=== PATIENT | male | born 1945 | race Caucasian/White ===

== ENCOUNTER 2020-01-16 20:07 | Emergency (ER) | payer OTHER ==
[~2020-01-16] VITALS: Ht 193 cm; Wt 79.4 kg
--- NOTE | 2020-01-16 20:10 | NUR ---
PT AAOX4. BIBRA FROM HOME C/O CHEST TIGHTNESS AND WEAKNESS X3 WEEKS. UPON ASSESSMENT PT SAT 93% ROOM AIR. HX OF COPD. NASAL CANNULA WAS TAKEN OFF. PER RA PT USUALLY ON 2L NC. R HAND 18G PLACED BY RA. PT PLACED ON STOCK PATCH SAWYER AND PULSE OX. NO ACUTE DISTRESS NOTED. AWAITING MD FOR EVAL AND ORDERS.
[2020-01-16 20:42] LABS: ABG BASE EXCESS 3.6 mmol/L; ABG OXYGEN SATURATION 85.3 % (92.0-98.5); ABG PCO2 51.4 mmHg (35.0-45.0); ABG PH 7.379 (7.350-7.450); ABG PO2 50.7 mmHg (75.0-100.0); AaDO2 37.5 mmHg; COHb 2.7 % (0.5-1.5); MetHb 0.1 % (0.0-1.5); O2Hb 82.9 % (94.0-97.0); SITE, ABG Right Radial; VENT MODE, BG ROOM AIR
--- NOTE | 2020-01-16 20:47 | NUR ---
RT AT BEDSIDE FOR ABG.
--- NOTE | 2020-01-16 20:48 | NUR ---
RT SPEAKING TO MD REGARDING ABG. MD STATED TO PLACE PT ON 3L NASAL CANNULA. PT PLACED ON 3L NASAL CANNULA. VSS.
[2020-01-16] MEDS ORDERED: TAMS-12 PO (20:58)
[2020-01-16] MEDS ORDERED: VANCOMYCIN 1 GM in IV D5W 250 ML IV ONE (21:00)
[2020-01-16] MEDS ORDERED: methylPREDNISolone SOD SUCC 125 MG/2ML VIAL IV ONE (21:00)
[2020-01-16] MEDS ORDERED: LEVOFLOXACIN 750 MG /D5W 150ML PIGGYBACK IV ONE (21:00)
--- NOTE | 2020-01-16 21:01 | NUR ---
SYSTEMS SOFTWARE DEVELOPER AT BEDSIDE FOR LABS.
--- NOTE | 2020-01-16 21:01 | NUR ---
COVID SWAB COLLECTED AND GIVEN TO [employer] SPECIALIST
[2020-01-16 21:10] LABS: BASOPHILS % (AUTO) 0.5 % (0.0-2.0); EOSINOPHILS % (AUTO) 8.9 % (0.0-6.0); HEMATOCRIT 34 % (39-51); HEMOGLOBIN 11.5 g/dL (13.5-17.5); LYMPHOCYTES # (AUTO) 0.7 /CMM (0.8-4.8); LYMPHOCYTES % (AUTO) 10.5 % (20.0-44.0); MEAN CORPUSCULAR HGB CONC 33 g/dl (31.0-36.0); MEAN CORPUSCULAR VOLUME 101 fL (80-96); MONOCYTES # (AUTO) 0.7 /CMM (0.1-1.30); NEUTROPHILS % (AUTO) 70.1 % (43.0-81.0); PLATELET COUNT (AUTO) 212 /CMM (150-450); RED BLOOD CELL COUNT(AUTO) 3.39 MIL/uL (4.5-6.0); WHITE BLOOD COUNT (AUTO) 7.1 K/uL (4.3-11.0)
[2020-01-16] MEDS ORDERED: methylPREDNISolone SOD SUCC 125 MG/2ML VIAL ONE (21:11)
[2020-01-16] MEDS ORDERED: LEVOFLOXACIN 750 MG /D5W 150ML 150 ML IV ONE (21:11)
--- NOTE | 2020-01-16 21:23 | NUR ---
SPOKE TO REGARDING PT UNABLE TO PROVIDE URINE SAMPLE. STATED IT IS NOT NEEDED ANYMORE.
[2020-01-16 21:36] LABS: CALCIUM, SERUM 8.6 mg/dL (8.5-10.1); CARBON DIOXIDE 29 mmol/L (21-32); CHLORIDE 95 mmol/L (98-107); CREATININE 0.7 mg/dL (0.6-1.3); GLUCOSE 82 mg/dL (74-106); POTASSIUM 4.3 mmol/L (3.5-5.1); SODIUM SERUM 131 mmol/L (136-145); UREA NITROGEN, BLOOD 11 mg/dL (7-18)
--- NOTE | 2020-01-16 21:45 | NUR ---
LAB CALLED REGARDING NEGATIVE COVID RESULT.
[2020-01-16 21:46] LABS: ALANINE AMINOTRANSFERASE 38 U/L (12-78); ALBUMIN 3.3 g/dL (3.4-5.0); ALKALINE PHOSPHATASE 63 U/L (46-116); ASPARTATE AMINOTRANSFERASE 40 U/L (15-37); BILIRUBIN,DIRECT 0.2 mg/dL (0.0-0.2); BILIRUBIN,TOTAL 0.8 mg/dL (0.2-1.0); TOTAL PROTEIN, SERUM 7.3 g/dL (6.4-8.2)
--- NOTE | 2020-01-16 21:50 | NUR ---
CALLED [facility] [phone] CANDI MUNSON WILL CALL US BACK.
--- NOTE | 2020-01-16 22:34 | NUR ---
CALL FROM [place] [facility]. PT ACCEPTED TO [facility] ER BY DR COREAS. # FOR REPORT [phone]. ETA [id number].
[2020-01-16] MEDS ORDERED: VANCOMYCIN 1 GM VIAL ONE (22:40)
--- NOTE | 2020-01-16 23:05 | NUR ---
REPORT GIVEN TO CODY JOHNSON FOR [facility]
[2020-01-16 23:08] VITALS: BP 133/79
--- NOTE | 2020-01-16 23:09 | NUR ---
REPORT GIVEN TO [facility], PT TRANSFERED.
== END 2020-01-16 23:20 | disposition short-term general hospital (02) ==
LOC: ER 20:09
DX: J44.1 Chronic obstructive pulmonary disease with (acute) exacerbation (principal); J96.21 Acute and chronic respiratory failure with hypoxia; J45.901 Unspecified asthma with (acute) exacerbation; L03.116 Cellulitis of left lower limb; L03.115 Cellulitis of right lower limb; D64.9 Anemia, unspecified; F17.210 Nicotine dependence, cigarettes, uncomplicated; R94.31 Abnormal electrocardiogram [ECG] [EKG]; Z87.01 Personal history of pneumonia (recurrent); I10 Essential (primary) hypertension; Z79.899 Other long term (current) drug therapy; Z20.828 Contact with and (suspected) exposure to other viral communicable diseases
CPT/HCPCS: 36415; 36600; 71045; 80048; 80076; 82803; 83605; 84145; 84484; 85025; 85730; 87040 ×2; 87081; 87426; 93005; 96365; 96367; 96368; 96375; 99291; C9803; J1956; J2930; J3370